=== PATIENT | female | born 1980 | race Two or more races ===

== ENCOUNTER 2017-02-10 03:35 | Emergency (ER) | payer MEDICAID ==
[~2017-02-10] VITALS: Ht 172.7 cm; Wt 61.2 kg
[2017-02-10] MEDS ORDERED: PROZAC10 MG ORAL (03:45)
[2017-02-10] MEDS ORDERED: ATIVAN0.5 MG ORAL (03:45)
[2017-02-10] MEDS ORDERED: Ketorolac 30mg Inj IV ONE (04:15)
[2017-02-10 04:44] LABS: BASOPHILS % (AUTO) 0.8 % (0.0-2.0); EOSINOPHILS % (AUTO) 1.6 % (0.0-3.0); HEMATOCRIT 38.3 % (37.0-47.0); HEMOGLOBIN 12.7 G/DL (12.0-16.0); LYMPHOCYTES % (AUTO) 24.6 % (20.0-45.0); MEAN CORPUSCULAR VOLUME 91 FL (80-99); PLATELET COUNT 342 K/UL (150-450); RED CELL DISTRIBUTION WIDTH 12.2 % (11.6-14.8); WHITE BLOOD COUNT 8.8 K/UL (4.8-10.8)
[2017-02-10 04:54] LABS: ANION GAP 6 mmol/L (5-15); BLOOD UREA NITROGEN 13 mg/dL (7-18); CALCIUM 7.8 MG/DL (8.5-10.1); CARBON DIOXIDE 26 MMOL/L (21-32); CHLORIDE 105 MMOL/L (98-107); CREATININE 0.7 MG/DL (0.55-1.30); POTASSIUM 3.9 MMOL/L (3.5-5.1); SODIUM 137 MMOL/L (136-145)
[2017-02-10 04:59] LABS: ALANINE AMINOTRANSFERASE 22 U/L (12-78); ALBUMIN 3.6 G/DL (3.4-5.0); ALBUMIN/GLOBULIN RATIO 0.9 (1.0-2.7); ALKALINE PHOSPHATASE 75 U/L (46-116); ASPARTATE AMINO TRANSFERASE 14 U/L (15-37); BILIRUBIN,TOTAL 0.1 MG/DL (0.2-1.0)
[2017-02-10 05:04] LABS: APPEARANCE,URINE SLIGHTLY CLOUDY; BILIRUBIN, URINE NEGATIVE (NEGATIVE); COLOR,URINE PALE YELLOW; GLUCOSE, URINE (UA) NEGATIVE (NEGATIVE); KETONES,URINE NEGATIVE (NEGATIVE); LEUKOCYTE ESTERASE ,URINE NEGATIVE (NEGATIVE); NITRITE,URINE NEGATIVE (NEGATIVE); PH,URINE 6 (4.5-8.0); PROTEIN,URINE NEGATIVE (NEGATIVE); UROBILINOGEN,URINE NORMAL MG/DL (0.0-1.0)
[2017-02-10] MEDS ORDERED: Morphine Sulfate 4mg/ml Inj IVP ONE (05:15)
[2017-02-10 05:55] VITALS: BP 113/71
[2017-02-10] MEDS ORDERED: TRAMADOL HCL50 MG ORAL (06:38)
--- NOTE | 2017-02-10 06:38 | Emergency Room Report ---
History of Present Illness General Chief Complaint: Abdominal Pain Source: Patient Present Illness HPI Is a 36-year-old female with history appendectomy. She presents with Lupe abdominal pain sharp and crampy. Also with diarrhea. Onset tonight. No vomiting but does have nausea. Pain is diffuse in nature. Initially the lower quadrant but now to the left upper quadrant in the right upper quadrant area. She was worried about her gallbladder. Allergies: Coded Allergies: No Known Allergies (Unverified , 02/10/17) Patient History Past Medical History: see triage record, old chart reviewed Past Surgical History: appy Pertinent Family History: none Social History: Denies: smoking Last Menstrual Period: 01/25/17 Now: No Immunizations: other Reviewed Nursing Documentation: PMH: Agreed, PSxH: Agreed Nursing Documentation-PMH Past Medical History: No History, Except For History Of Psychiatric Problem: Yes - anxiety Review of Systems Eye: Denies: eye pain, blurred vision ENT: Denies: ear pain, nose congestion, throat swelling Respiratory: Denies: cough, shortness of breath Cardiovascular: Denies: chest pain, palpitations Gastrointestinal: Reports: abdominal pain, diarrhea, Denies: nausea, vomiting Musculoskeletal: Denies: back pain, joint pain Skin: Denies: rash Neurological: Denies: headache, numbness Endocrine: Denies: increased thirst, increased urine Hematologic/Lymphatic: Denies: easy bruising All Other Systems: negative except mentioned in HPI Physical Exam Vital Signs Date Time Temp Pulse Resp B/P (MAP) Pulse Ox O2 Delivery O2 Flow Rate FiO2 02/10/17 03:41 97.7 72 16 112/63 99 Room Air vitals normal Sp02 EP Interpretation: reviewed, normal General Appearance: well appearing, no apparent distress, alert Head: normocephalic, atraumatic Eyes: bilateral eye PERRL, bilateral eye EOMI ENT: hearing grossly normal, normal pharynx Neck: full range of motion, supple, no meningismus Respiratory: chest non-tender, lungs clear, normal breath sounds Cardiovascular #1: regular rate, rhythm, no murmur Gastrointestinal: no mass, no organomegaly, no bruit, non-distended, abnormal bowel sounds - Hyperactive, tenderness - Mild, diffuse Musculoskeletal: back normal, gait/station normal, normal range of motion Psychiatric: mood/affect normal Skin: warm/dry Medical Decision Making Diagnostic Impression: Primary Impression: Abdominal pain Qualified Codes: R10.84 - Generalized abdominal pain Additional Impression: Diarrhea Qualified Codes: R19.7 - Diarrhea, unspecified ER Course Patient present with abdominal pain and diarrhea. Most likely viral in nature. No evidence of obstruction. No evidence of acute abdomen. We'll discharge home. She felt better now. CT/MRI/US Diagnostic Results CT/MRI/US Diagnostic Results : Imaging Test Ordered: CT abdomen and pelvis Impression Read by radiologist. Negative. Last Vital Signs Date Time Temp Pulse Resp B/P (MAP) Pulse Ox O2 Delivery O2 Flow Rate FiO2 02/10/17 05:55 97.7 70 16 113/71 99 Room Air Status: improved Disposition: HOME, SELF-CARE Condition: Stable Scripts Tramadol Hcl* (ULTRAM*) 50 Mg Tablet 50 MG ORAL Q6H Y for For Pain, #15 TAB 0 Refills Prov: MERRILL CLAUDIO M.D. 02/10/17 Referrals: NOT CHOSEN IPA/,REFERRING (PCP) Patient Instructions: Abdominal Pain, Adult Additional Instructions: followup your DrCyrus in 2-3 days and not better. Return if worse. MERRILL CLAUDIO M.D. Feb 10, 2017 06:38
[2017-02-10 06:45] VITALS: BP 113/71
--- NOTE | 2017-02-10 09:36 | Diagnostic Imaging Report ---
Indication: Abdominal pain Technique: CT of the abdomen and pelvis utilizing automated exposure control without intravenous or oral contrast. CT dose: Total DLP 1215.03 mGycm; CTDI vol 24.52 mGy Comparison: None Findings: Please note that evaluation of the abdominal and pelvic viscera is limited without the use of intravenous and oral contrast. Within these limitations, the following observations are made: Dependent atelectasis noted in the lung bases. Heart is partially visualized and appears within normal limits for size. No apparent pericardial effusion. Noncontrast evaluation of the liver, gallbladder, spleen, adrenal glands and pancreas is grossly unremarkable. No urinary tract stones or hydronephrosis bilaterally. The bladder is mildly distended but otherwise unremarkable. There is ill-defined bilateral adnexal enlargement, right greater the left. Ovaries appear to abut each other posteriorly to the uterus was possible intervening fluid. Findings may be related to multiple ovarian cysts or possible hydrosalpinx. Correlation with pelvic ultrasound recommended is currently warranted. No evidence of bowel obstruction. No free intraperitoneal air. The patient is status post appendectomy, most likely post surgical change in the mesenteric fat in the right lower quadrant. No appreciable focal or diffuse abnormal bowel wall thickening however sensitivity is decreased without oral contrast. There is a tiny fat-containing umbilical hernia. Abdominal aorta is normal in caliber. Small mesenteric lymph nodes are noted, possibly reactive in etiology. None meet size criteria for pathologic enlargement. There are multilevel degenerative changes of the thoracolumbar spine. No acute osseous abnormality is seen. Impression: Limited evaluation without intravenous and oral contrast. Within these limitations: * Limited evaluation of the uterus and adnexa. Apparent bilateral adnexal prominence/enlargement may be related to ovarian cysts. Additional etiologies not excluded. Correlation with pelvic ultrasound may be obtained for better evaluation as clinically warranted. * No bowel obstruction. Status post appendectomy. * No renal stones or hydronephrosis. * Small mesenteric lymph nodes are noted, none of which meet imaging size criteria for pathologic enlargement. These may be reactive in etiology. Clinical correlation recommended. Consider follow-up exam as clinically indicated. The CT scanner at [facility] is accredited by the [employer] and the scans are performed using protocols designed to limit radiation exposure to as low as reasonably achievable to attain images of sufficient resolution adequate for diagnostic evaluation.
== END 2017-02-10 06:50 | disposition home or self-care (01) ==
LOC: EDBD 03:35 → EMR 03:55
DX: R10.9 Unspecified abdominal pain (principal); R19.7 Diarrhea, unspecified
CPT/HCPCS: 36415; 74176; 80053; 81003; 81025; 83690; 85025; 96361; 96374; 96375; 99284; J1885; J2270

== ENCOUNTER 2017-06-01 09:10 | Emergency (ER) | payer MEDICAID ==
[~2017-06-01] VITALS: Ht 172.7 cm; Wt 81.6 kg
[~2017-06-01 09:10] MED LIST: ATIVAN0.5 MG ORAL; PROZAC10 MG ORAL; TRAMADOL HCL50 MG ORAL
--- NOTE | 2017-06-01 09:21 | Emergency Room Report ---
History of Present Illness General Chief Complaint: Abdominal Pain Source: Patient Present Illness HPI This patient is brought in by EMS. Around 7 AM this morning she developed severe abdominal pain. She states that then she vomited several times. She did have an episode of diarrhea. He states her pain in her abdomen continues. She denies fever or chills. She denies chest pain or shortness of breath. She denies recent illness. She states she has a history of an appendectomy. She also has a history of some ovarian cysts. She states she is also noted significant weight gain over the past several years. She states that this is despite an unchanged diet. She states she did get seen by her primary care physician and underwent some testing to include a thyroid test. There were no abnormalities identified. Otherwise, the patient has no other complaints. Allergies: Coded Allergies: No Known Allergies (Unverified , 02/10/17) Patient History Past Medical History: see triage record Past Surgical History: appy Social History: Denies: smoking, alcohol use, drug use Last Menstrual Period: 4 days ago Reviewed Nursing Documentation: PMH: Agreed; PSxH: Agreed Review of Systems All Other Systems: negative except mentioned in HPI Physical Exam Vital Signs Date Time Temp Pulse Resp B/P (MAP) Pulse Ox O2 Delivery O2 Flow Rate FiO2 06/01/17 09:12 98.0 60 18 137/89 96 Room Air 98.1 Sp02 EP Interpretation: reviewed, normal General Appearance: no apparent distress, alert, GCS 15, non-toxic Head: normocephalic, atraumatic Eyes: bilateral eye normal inspection, bilateral eye PERRL ENT: hearing grossly normal, normal pharynx, no angioedema, normal voice Neck: full range of motion, supple/symm/no masses Respiratory: chest non-tender, lungs clear, normal breath sounds, no respiratory distress, no retraction, no accessory muscle use, speaking full sentences Cardiovascular #1: regular rate, rhythm, no edema Gastrointestinal: normal bowel sounds, soft, non-distended, no guarding, no rebound, tenderness - Exquisite tenderness to palpation to even light palpation. The tenderness is nonlocalized. Rectal: deferred Musculoskeletal: back normal, gait/station normal, normal range of motion, non- tender Neurologic: alert, oriented x3, responsive, motor strength/tone normal, sensory intact, speech normal Psychiatric: judgement/insight normal, memory normal, mood/affect normal, no suicidal/homicidal ideation Skin: normal color, no rash, warm/dry, well hydrated Medical Decision Making Diagnostic Impression: Primary Impression: Ovarian cyst ER Course This patient presents with abdominal pain. She is found on ultrasound to have a very large right ovary. It appears complicated and could be a large complicated ovarian cyst. However, the patient has significant tenderness to palpation throughout her abdomen. Given the diffuse tenderness, I felt I should also obtain a CT of the abdomen and pelvis for concern of possible ovarian cancer with metastases. I do not suspect peritonitis. The patient is nontoxic, afebrile and without signs or symptoms of infection. Laboratory workup to include CBC, CMP and urinalysis are unremarkable. At this time, the patient is awaiting CT of the abdomen and pelvis. The patient is turned over to Dr. Jones. Laboratory Tests Test 06/01/17 09:20 06/01/17 09:31 06/01/17 11:38 White Blood Count 9.7 K/UL (4.8-10.8) Red Blood Count 4.17 M/UL (4.20-5.40) L Hemoglobin 12.8 G/DL (12.0-16.0) Hematocrit 37.4 % (37.0-47.0) Mean Corpuscular Volume 90 FL (80-99) Mean Corpuscular Hemoglobin 30.6 PG (27.0-31.0) Mean Corpuscular Hemoglobin Concent 34.2 G/DL (32.0-36.0) Red Cell Distribution Width 12.8 % (11.6-14.8) Platelet Count 334 K/UL (150-450) Mean Platelet Volume 7.5 FL (6.5-10.1) Neutrophils (%) (Auto) 79.6 % (45.0-75.0) H Lymphocytes (%) (Auto) 13.4 % (20.0-45.0) L Monocytes (%) (Auto) 4.5 % (1.0-10.0) Eosinophils (%) (Auto) 1.8 % (0.0-3.0) Basophils (%) (Auto) 0.8 % (0.0-2.0) Sodium Level 138 MMOL/L (136-145) Potassium Level 3.9 MMOL/L (3.5-5.1) Chloride Level 104 MMOL/L (98-107) Carbon Dioxide Level 29 MMOL/L (21-32) Anion Gap 5 mmol/L (5-15) Blood Urea Nitrogen 13 mg/dL (7-18) Creatinine 0.8 MG/DL (0.55-1.30) Estimate Glomerular Filtration Rate > 60 mL/min (>60) Glucose Level 117 MG/DL (74-106) H Calcium Level 8.4 MG/DL (8.5-10.1) L Total Bilirubin 0.2 MG/DL (0.2-1.0) Aspartate Amino Transferase (AST) 15 U/L (15-37) Alanine Aminotransferase (ALT) 24 U/L (12-78) Alkaline Phosphatase 70 U/L (46-116) Total Protein 6.8 G/DL (6.4-8.2) Albumin 3.3 G/DL (3.4-5.0) L Globulin 3.5 g/dL Albumin/Globulin Ratio 0.9 (1.0-2.7) L Urine Color Pale yellow Urine Appearance Clear Urine pH 6 (4.5-8.0) Urine Specific [place] 1.010 (1.005-1.035) Urine Protein Negative (NEGATIVE) Urine Glucose (UA) Negative (NEGATIVE) Urine Ketones Negative (NEGATIVE) Urine Occult Blood 4+ (NEGATIVE) H Urine Nitrite Negative (NEGATIVE) Urine Bilirubin Negative (NEGATIVE) Urine Urobilinogen Normal MG/DL (0.0-1.0) Urine Leukocyte Esterase Negative (NEGATIVE) Urine RBC 5-10 /HPF (0 - 2) H Urine WBC 0-2 /HPF (0 - 2) Urine Squamous Epithelial Cells Occasional /LPF Urine Bacteria Occasional /HPF (NONE) Urine HCG, Qualitative Negative (NEGATIVE) CT/MRI/US Diagnostic Results CT/MRI/US Diagnostic Results : Imaging Test Ordered: Pelvic US: Enlarge R. ovary, CT abd/pelvis: Pending. Last Vital Signs Date Time Temp Pulse Resp B/P (MAP) Pulse Ox O2 Delivery O2 Flow Rate FiO2 06/01/17 09:12 98.0 60 18 137/89 96 Room Air 98.1 Condition: Stable MEAGHAN LEE D.O. Jun 01, 2017 09:21
[2017-06-01] MEDS ORDERED: Ketorolac 30mg Inj IV ONE (09:30)
[2017-06-01 10:04] VITALS: BP 112/62
[2017-06-01 10:07] LABS: BASOPHILS % (AUTO) 0.8 % (0.0-2.0); EOSINOPHILS % (AUTO) 1.8 % (0.0-3.0); HEMATOCRIT 37.4 % (37.0-47.0); HEMOGLOBIN 12.8 G/DL (12.0-16.0); LYMPHOCYTES % (AUTO) 13.4 % (20.0-45.0); MEAN CORPUSCULAR VOLUME 90 FL (80-99); MONOCYTES % (AUTO) 4.5 % (1.0-10.0); NEUTROPHILS % (AUTO) 79.6 % (45.0-75.0); PLATELET COUNT 334 K/UL (150-450); RED BLOOD COUNT 4.17 M/UL (4.20-5.40); RED CELL DISTRIBUTION WIDTH 12.8 % (11.6-14.8); WHITE BLOOD COUNT 9.7 K/UL (4.8-10.8)
[2017-06-01 10:17] LABS: ANION GAP 5 mmol/L (5-15); BLOOD UREA NITROGEN 13 mg/dL (7-18); CALCIUM 8.4 MG/DL (8.5-10.1); CARBON DIOXIDE 29 MMOL/L (21-32); CHLORIDE 104 MMOL/L (98-107); CREATININE 0.8 MG/DL (0.55-1.30); POTASSIUM 3.9 MMOL/L (3.5-5.1); SODIUM 138 MMOL/L (136-145)
[2017-06-01 10:21] LABS: ALANINE AMINOTRANSFERASE 24 U/L (12-78); ALBUMIN 3.3 G/DL (3.4-5.0); ALBUMIN/GLOBULIN RATIO 0.9 (1.0-2.7); ALKALINE PHOSPHATASE 70 U/L (46-116); ASPARTATE AMINO TRANSFERASE 15 U/L (15-37); BILIRUBIN,TOTAL 0.2 MG/DL (0.2-1.0)
[2017-06-01 11:47] VITALS: BP 111/62
[2017-06-01 11:56] LABS: APPEARANCE,URINE CLEAR; BILIRUBIN, URINE NEGATIVE (NEGATIVE); COLOR,URINE PALE YELLOW; GLUCOSE, URINE (UA) NEGATIVE (NEGATIVE); KETONES,URINE NEGATIVE (NEGATIVE); LEUKOCYTE ESTERASE ,URINE NEGATIVE (NEGATIVE); NITRITE,URINE NEGATIVE (NEGATIVE); PH,URINE 6 (4.5-8.0); PROTEIN,URINE NEGATIVE (NEGATIVE); UROBILINOGEN,URINE NORMAL MG/DL (0.0-1.0)
[2017-06-01] MEDS ORDERED: LIDODERM700 M1 TOPIC (14:26)
[2017-06-01] MEDS ORDERED: IBUPROFEN600 MG ORAL (14:26)
[2017-06-01 14:38] VITALS: BP 111/62
--- NOTE | 2017-06-02 08:49 | Diagnostic Imaging Report ---
Indication: Pelvic pain Technique: Transabdominal and endovaginal pelvic ultrasound Comparison: CT abdomen and pelvis 02/10/2017 Findings: Examination is technically limited with suboptimal evaluation. Uterus grossly measures 7.6 x 3.6 cm. Endometrial echo complex measures 0.7 cm. Left ovary measures 4.4 x 2.2 cm with follicular changes. There is complex appearance in the right adnexa overall grossly measuring approximately 5.9 x 4.6 cm. There are more focal hypoechoic areas within this grossly measuring up to 3.3 cm. There is a small amount of free fluid in the pelvis. Doppler flow is demonstrated to the bilateral ovaries. Impression: Technically limited examination with suboptimal visualization of pelvic structures. Complex appearance in the right adnexa grossly measuring approximately 5.9 x 4.6 cm with more focal hypoechoic areas within this grossly measuring up to 3.3 cm. Differential considerations would include hemorrhagic cysts, endometriomas or other ovarian or extraovarian pathology. Follicular changes of the left ovary. Doppler flow demonstrated to the bilateral ovaries. Short-term follow-up ultrasound and/or gynecologic evaluation recommended. Endometrial echo complex measures 0.7 cm.
--- NOTE | 2017-06-02 08:55 | Diagnostic Imaging Report ---
Indication: Abdominal pain Technique: CT of the abdomen and pelvis utilizing automated exposure control with intravenous contrast. Venous scanning performed. CT dose: Total DLP 820 mGycm; CTDI vol 15.7 mGy Comparison: 02/10/2017 Findings: Breast implants are partially visualized. There is mild atelectasis in the lung bases. The liver, adrenal glands, spleen and pancreas are unremarkable. No CT dense gallstones are identified. Kidneys are unremarkable. There is suggestion of appendectomy. No appendicitis is identified. There is limited evaluation of the bowel without oral contrast. There is no free intraperitoneal air. There is mild free fluid in the pelvis. There is heterogeneous prominence of the right adnexa with complex hypodense area grossly measuring 4.4 x 5.3 cm. Probable follicular changes of the left ovary are also seen. Tampon is seen in the vagina. Bladder is grossly unremarkable. Degenerative changes of the spine are present. Impression: Complex hypodense appearance of the right adnexa grossly measuring 5.3 x 4.4 cm. Although findings could represent underlying hemorrhagic/functional cysts, possibility of endometriomas or other ovarian pathology not excluded. Short-term follow-up/gynecologic evaluation recommended. Small amount of free fluid in the pelvis. Apparent appendectomy. Tampon. Other findings as above. The CT scanner at [facility] is accredited by the [employer] and the scans are performed using protocols designed to limit radiation exposure to as low as reasonably achievable to attain images of sufficient resolution adequate for diagnostic evaluation.
== END 2017-06-01 14:39 | disposition home or self-care (01) ==
LOC: EDBD 09:10 → EMR 09:22
DX: N83.201 Unspecified ovarian cyst, right side (principal)
CPT/HCPCS: 36415; 74177; 76856; 80053; 81003; 81025; 85025; 96361; 96374; 99284; J1885; Q9967

== ENCOUNTER 2017-07-04 12:01 | Emergency (ER) | payer MEDICAID ==
[~2017-07-04] VITALS: Ht 172.7 cm; Wt 77.1 kg
[~2017-07-04 12:01] MED LIST changes: +IBUPROFEN600 MG ORAL; +LIDODERM700 M1 TOPIC
[2017-07-04] MEDS ORDERED: PROZAC20 MG ORAL (12:03)
[2017-07-04 12:08] VITALS: BP 132/69
[2017-07-04] MEDS ORDERED: Morphine Sulfate 4mg/ml Inj IVP ONE (12:30)
[2017-07-04] MEDS ORDERED: Ketorolac 30mg Inj IV ONE (12:30)
[2017-07-04 12:34] LABS: HEMOGLOBIN 14.1 G/DL (12.0-16.0); MEAN CORPUSCULAR VOLUME 89 FL (80-99); PLATELET COUNT 432 K/UL (150-450); RED BLOOD COUNT 4.84 M/UL (4.20-5.40); RED CELL DISTRIBUTION WIDTH 12.6 % (11.6-14.8); WHITE BLOOD COUNT 14.7 K/UL (4.8-10.8)
[2017-07-04 12:45] LABS: ANION GAP 6 mmol/L (5-15); BLOOD UREA NITROGEN 11 mg/dL (7-18); CALCIUM 9.3 MG/DL (8.5-10.1); CARBON DIOXIDE 28 MMOL/L (21-32); CHLORIDE 105 MMOL/L (98-107); CREATININE 0.9 MG/DL (0.55-1.30); POTASSIUM 3.9 MMOL/L (3.5-5.1); SODIUM 139 MMOL/L (136-145)
[2017-07-04 12:49] LABS: ALANINE AMINOTRANSFERASE 28 U/L (12-78); ALBUMIN 3.9 G/DL (3.4-5.0); ALBUMIN/GLOBULIN RATIO 0.9 (1.0-2.7); ALKALINE PHOSPHATASE 82 U/L (46-116); ASPARTATE AMINO TRANSFERASE 14 U/L (15-37); BILIRUBIN,TOTAL < 0.1 MG/DL (0.2-1.0)
--- NOTE | 2017-07-04 13:00 | Emergency Room Report ---
History of Present Illness General Chief Complaint: Abdominal Pain Source: Patient Present Illness HPI Patient present with complaints of diffuse abdominal pain Initially reports of the pain is in the lower bladder area/uterus And the pain has also gone diffusely throughout the abdomen Cramping sensation 10 out of 10 Denies any vomiting or diarrhea Denies any chest pain or short of breath Denies any pleurisy Patient had some similar pain recently which was diagnosed with ruptured ovarian cyst Allergies: Coded Allergies: No Known Allergies (Unverified , 02/10/17) Patient History Past Medical History: see triage record Pertinent Family History: none Last Menstrual Period: 05/26/17 Reviewed Nursing Documentation: PMH: Agreed; PSxH: Agreed Review of Systems All Other Systems: negative except mentioned in HPI Physical Exam Vital Signs Date Time Temp Pulse Resp B/P (MAP) Pulse Ox O2 Delivery O2 Flow Rate FiO2 07/04/17 11:58 98.2 88 22 143/87 99 Room Air 98.2 Sp02 EP Interpretation: reviewed, normal General Appearance: mild distress - in acute pain Head: normocephalic, atraumatic Eyes: bilateral eye PERRL, bilateral eye EOMI ENT: hearing grossly normal, normal pharynx, TMs + canals normal, uvula midline Neck: full range of motion, supple, no meningismus, no bony tend Respiratory: lungs clear, normal breath sounds, no rhonchi, no respiratory distress, no retraction, no accessory muscle use Cardiovascular #1: normal peripheral pulses, regular rate, rhythm, no edema, no gallop, no JVD, no murmur Gastrointestinal: normal bowel sounds, soft, no mass, no organomegaly, non- distended, no guarding, no hernia, no pulsatile mass, no rebound, tenderness - Soft abdomen clinically however patient is tender diffusely on any palpation no obvious peritoneal finding I cannot localize the pain specifically however there does appear to be increased discomfort in the suprapubic area Genitourinary: no CVA tenderness Musculoskeletal: normal inspection Neurologic: oriented x3, responsive, lead software test engineer III-XII nml as tested, motor strength/ tone normal, sensory intact Psychiatric: mood/affect normal Skin: normal color, no rash, warm/dry, palpation normal Lymphatic: normal inspection, no adenopathy Medical Decision Making Diagnostic Impression: Primary Impression: Abdominal pain Additional Impressions: Endometrioma Cyst, ovary, follicular ER Course With the patient's history and examination, multiple differentials considered, including but not limited to , ectopic , ovarian torsion, gastritis, cholecystitis, pancreatitis, appendicitis Patient's blood work reveals mildly elevated white blood cell count Patient has had recent CAT scan imaging and therefore this was deferred, ultrasound was performed, revealing similar mass in the right adnexal region there is evidence of fluid, radiology reports likely from ruptured cyst. However, patient is notified of the importance of close follow up as she was last time as other differentials such as neoplasm(cancer) are still possible Some other differentials and consideration include peritoneal irritation from possible ruptured cyst, worsening endometriomas Patient is placed on oral antibiotics At this time does not appear septic or toxic abdomen exam has greatly improved I did offer patient admission with gynecology consultation during hospitalization, however patient reports significant improvement and would like to see her own specialist Labs Test 07/04/17 12:20 07/04/17 13:10 White Blood Count 14.7 K/UL (4.8-10.8) Red Blood Count 4.84 M/UL (4.20-5.40) Hemoglobin 14.1 G/DL (12.0-16.0) Hematocrit 43.0 % (37.0-47.0) Mean Corpuscular Volume 89 FL (80-99) Mean Corpuscular Hemoglobin 29.1 PG (27.0-31.0) Mean Corpuscular Hemoglobin Concent 32.7 G/DL (32.0-36.0) Red Cell Distribution Width 12.6 % (11.6-14.8) Platelet Count 432 K/UL (150-450) Mean Platelet Volume 7.0 FL (6.5-10.1) Neutrophils (%) (Auto) % (45.0-75.0) Lymphocytes (%) (Auto) % (20.0-45.0) Monocytes (%) (Auto) % (1.0-10.0) Eosinophils (%) (Auto) % (0.0-3.0) Basophils (%) (Auto) % (0.0-2.0) Differential Total Cells Counted 100 Neutrophils % (Manual) 79 % (45-75) Lymphocytes % (Manual) 12 % (20-45) Monocytes % (Manual) 6 % (1-10) Eosinophils % (Manual) 2 % (0-3) Basophils % (Manual) 0 % (0-2) Band Neutrophils 1 % (0-8) Platelet Estimate Adequate Platelet Morphology Normal Red Blood Cell Morphology Normal Sodium Level 139 MMOL/L (136-145) Potassium Level 3.9 MMOL/L (3.5-5.1) Chloride Level 105 MMOL/L (98-107) Carbon Dioxide Level 28 MMOL/L (21-32) Anion Gap 6 mmol/L (5-15) Blood Urea Nitrogen 11 mg/dL (7-18) Creatinine 0.9 MG/DL (0.55-1.30) Estimat Glomerular Filtration Rate > 60 mL/min (>60) Glucose Level 141 MG/DL (74-106) Calcium Level 9.3 MG/DL (8.5-10.1) Total Bilirubin < 0.1 MG/DL (0.2-1.0) Aspartate Amino Transf (AST/SGOT) 14 U/L (15-37) Alanine Aminotransferase (ALT/SGPT) 28 U/L (12-78) Alkaline Phosphatase 82 U/L (46-116) Total Protein 8.1 G/DL (6.4-8.2) Albumin 3.9 G/DL (3.4-5.0) Globulin 4.2 g/dL Albumin/Globulin Ratio 0.9 (1.0-2.7) Lipase 80 U/L (73-393) Urine Color Pale yellow Urine Appearance Clear Urine pH 6 (4.5-8.0) Urine Specific [place] 1.015 (1.005-1.035) Urine Protein Negative (NEGATIVE) Urine Glucose (UA) Negative (NEGATIVE) Urine Ketones Negative (NEGATIVE) Urine Occult Blood 2+ (NEGATIVE) Urine Nitrite Negative (NEGATIVE) Urine Bilirubin Negative (NEGATIVE) Urine Urobilinogen Normal MG/DL (0.0-1.0) Urine Leukocyte Esterase Negative (NEGATIVE) Urine RBC 2-4 /HPF (0 - 2) Urine WBC 0-2 /HPF (0 - 2) Urine Squamous Epithelial Cells Few /LPF (NONE/OCC) Urine Bacteria Occasional /HPF (NONE) Urine HCG, Qualitative Negative (NEGATIVE) CT/MRI/US Diagnostic Results CT/MRI/US Diagnostic Results : Impression pelvic ultrasound:IMPRESSION: Moderate hemoperitoneum within the pelvis. Findings probably on the basis of rupture of a hemorrhagic ovarian cyst. Patient is not so ectopic is not considered. 5 to 6 cm complex right ovarian mass. Differential includes hemorrhagic cysts versus ovarian neoplasm. Recommend six-week interval sonographic follow-up and follow- up with [facility]. Small fundal uterine fibroid. Last Vital Signs Date Time Temp Pulse Resp B/P (MAP) Pulse Ox O2 Delivery O2 Flow Rate FiO2 07/04/17 12:30 98.2 07/04/17 12:08 67 22 132/69 99 Room Air Status: improved Disposition: HOME, SELF-CARE Condition: Improved Scripts Metronidazole* (FLAGYL*) 500 Mg Tablet 500 MG ORAL THREE TIMES A DAY, #21 TAB Prov: Sandeep Sifuentes DO 07/04/17 Acetaminophen With Codeine (T#3) (TYLENOL #3 TAB*) Y Tab 1 TAB ORAL Q8H PRN for For Pain, #10 TAB Prov: Sandeep Sifuentes DO 07/04/17 Ibuprofen* (MOTRIN*) 600 Mg Tablet 600 MG ORAL Q8H PRN for For Pain, #30 TAB 0 Refills Prov: Sandeep Sifuentes DO 07/04/17 Referrals: NON PHYSICIAN (PCP) Additional Instructions: Patient is provided with the discharge instructions notified to follow up with primary doctor in the next 2-3 days otherwise return to the er with any worsening symptoms. Please note that this report is being documented using [employer] technology. This can lead to erroneous entry secondary to incorrect interpretation by the dictating instrument. Sandeep Sifuentes DO July 04, 2017 13:00
[2017-07-04 13:50] LABS: BILIRUBIN, URINE NEGATIVE (NEGATIVE); COLOR,URINE PALE YELLOW; GLUCOSE, URINE (UA) NEGATIVE (NEGATIVE); KETONES,URINE NEGATIVE (NEGATIVE); LEUKOCYTE ESTERASE ,URINE NEGATIVE (NEGATIVE); NITRITE,URINE NEGATIVE (NEGATIVE); PH,URINE 6 (4.5-8.0); PROTEIN,URINE NEGATIVE (NEGATIVE); UROBILINOGEN,URINE NORMAL MG/DL (0.0-1.0)
[2017-07-04 13:51] LABS: APPEARANCE,URINE CLEAR
[2017-07-04] MEDS ORDERED: IBUPROFEN600 MG ORAL (14:15)
[2017-07-04] MEDS ORDERED: METRONIDAZOLE500 MG ORAL (14:15)
[2017-07-04] MEDS ORDERED: ACETAMINOPHEN-1 EAC1 ORAL (14:15)
[2017-07-04 14:30] VITALS: BP 125/78
[2017-07-04] MEDS ORDERED: cefTRIAXone 1 GM in NS 55 ML IVPB ONE (14:45)
--- NOTE | 2017-07-04 14:58 | Diagnostic Imaging Report ---
Indication:Lower abdominal and pelvic pain Technique: Grayscale and duplex Doppler imaging of the pelvis performed utilizing a transabdominal scan and endovaginal scan. Comparison: None Findings: We have clinical confirmation of a negative test. There is free fluid within the cul-de-sac with the echoes indicative of pneumoperitoneum. Findings are probably on the basis of a ruptured hemorrhagic cyst. In the right adnexa there is a partially cystic complex lesion measuring 5.5 x 5 cm. Follow-up is recommended at another phase of the menstrual cycle in 6 weeks. These could be physiologic hemorrhagic cysts. Differential includes cystic neoplasm. There is dopplerable blood flow within the solid portion of the right ovary. The uterus demonstrates a normal endometrium measuring 7 mm with uniform echogenicity. There is a small fibroid that is probably intramural in the fundal region measuring about 1 x 1.2 cm. There is a simple cyst in the left ovary likely physiologic. Uterus measures 7.6 x 4.2 x 3.6 cm. Right ovary measures 5.5 x 5.7 x 5 cm. Left ovary 4.2 x 3.5 x 2 cm. IMPRESSION: Moderate hemoperitoneum within the pelvis. Findings probably on the basis of rupture of a hemorrhagic ovarian cyst. Patient is not so ectopic is not considered. 5 to 6 cm complex right ovarian mass. Differential includes hemorrhagic cysts versus ovarian neoplasm. Recommend six-week interval sonographic follow-up and follow-up with DRYING MACHINE BACK TENDER. Small fundal uterine fibroid.
[2017-07-04 16:40] VITALS: BP 125/78
== END 2017-07-04 16:40 | disposition home or self-care (01) ==
LOC: EDBD 12:01 → EMR 12:40 → CANBEDREQ 14:46 → EMR 16:40
DX: R10.30 Lower abdominal pain, unspecified (principal); N80.9 Endometriosis, unspecified; N83.201 Unspecified ovarian cyst, right side; D25.9 Leiomyoma of uterus, unspecified
CPT/HCPCS: 36415; 76830; 76856; 80053; 81003; 81025; 83690; 85007; 85025; 96374; 96375; 99284; J0696; J1885; J2270; J2405

== ENCOUNTER 2017-08-16 05:49 | Emergency (ER) | payer MEDICAID ==
[~2017-08-16] VITALS: Ht 172.7 cm; Wt 72.6 kg
[~2017-08-16 05:49] MED LIST changes: +ACETAMINOPHEN-1 EAC1 ORAL; +METRONIDAZOLE500 MG ORAL; +PROZAC20 MG ORAL
--- NOTE | 2017-08-16 06:05 | Emergency Room Report ---
History of Present Illness General Chief Complaint: Abdominal Pain Source: Patient, Medical Record, EMS Present Illness HPI Is a 36 year female with no past medical history. She presents with chief complaint of abdominal pain. Onset was around 4:40 AM. Woke up with it. Pain is sharp localized the lower quadrant. 10 out of 10. No radiation. Has several episode vomiting. No diarrhea. She was here in June in had a rupture ovarian cyst. Also with an ovarian mass that she has not followed up with. She has some vaginal spotting. Does not know if she is . No fever chills but no other complaint. No urinary complaint. Allergies: Coded Allergies: No Known Allergies (Unverified , 02/10/17) Patient History Past Medical History: see triage record, old chart reviewed Past Surgical History: other Pertinent Family History: none Social History: Denies: smoking Last Menstrual Period: 07/2017 Now: No Immunizations: other Reviewed Nursing Documentation: PMH: Agreed; PSxH: Agreed Review of Systems Eye: Denies: eye pain, blurred vision ENT: Denies: ear pain, nose congestion, throat swelling Respiratory: Denies: cough, shortness of breath Cardiovascular: Denies: chest pain, palpitations Gastrointestinal: Reports: abdominal pain, nausea, vomiting; Denies: diarrhea Musculoskeletal: Denies: back pain, joint pain Skin: Denies: rash Neurological: Denies: headache, numbness Endocrine: Denies: increased thirst, increased urine Hematologic/Lymphatic: Denies: easy bruising All Other Systems: negative except mentioned in HPI Physical Exam Vital Signs Date Time Temp Pulse Resp B/P (MAP) Pulse Ox O2 Delivery O2 Flow Rate FiO2 08/16/17 05:45 97.9 93 16 151/88 99 Room Air 97.9 vitals with high blood pressure Sp02 EP Interpretation: reviewed, normal General Appearance: well appearing, no apparent distress, alert Head: normocephalic, atraumatic Eyes: bilateral eye PERRL, bilateral eye EOMI ENT: hearing grossly normal, normal pharynx Neck: full range of motion, supple, no meningismus Respiratory: chest non-tender, lungs clear, normal breath sounds Cardiovascular #1: regular rate, rhythm, no murmur Gastrointestinal: normal bowel sounds, no mass, no organomegaly, no bruit, non- distended, tenderness - diffuse lower quadrant abdominal pain Musculoskeletal: back normal, gait/station normal, normal range of motion Psychiatric: anxious Skin: warm/dry Medical Decision Making Diagnostic Impression: Primary Impression: Abdominal pain Qualified Codes: R10.30 - Lower abdominal pain, unspecified ER Course Patient with lower abdominal pain. Differential include rupture ovarian cysts, torsion, ectopic, appendicitis to name a few. We'll check urine for . Labs and CT scan ordered. Pain medication ordered. I will sign this patient out to Dr. Meeks for final disposition. Last Vital Signs Date Time Temp Pulse Resp B/P (MAP) Pulse Ox O2 Delivery O2 Flow Rate FiO2 08/16/17 05:45 97.9 93 16 151/88 99 Room Air 97.9 MERRILL CLAUDIO M.D. Aug 16, 2017 06:05
[2017-08-16] MEDS ORDERED: Morphine Sulfate 4mg/ml Inj IVP ONE (06:15)
[2017-08-16] MEDS ORDERED: Isovue-300 100ml vial INJ PRN (06:45)
[2017-08-16 06:46] LABS: BASOPHILS % (AUTO) 0.8 % (0.0-2.0); EOSINOPHILS % (AUTO) 1.7 % (0.0-3.0); HEMATOCRIT 42.8 % (37.0-47.0); HEMOGLOBIN 14.1 G/DL (12.0-16.0); MEAN CORPUSCULAR VOLUME 89 FL (80-99); MONOCYTES % (AUTO) 6.7 % (1.0-10.0); NEUTROPHILS % (AUTO) 67.8 % (45.0-75.0); PLATELET COUNT 359 K/UL (150-450); RED BLOOD COUNT 4.82 M/UL (4.20-5.40); RED CELL DISTRIBUTION WIDTH 12.6 % (11.6-14.8); WHITE BLOOD COUNT 10.5 K/UL (4.8-10.8)
[2017-08-16 06:53] LABS: ANION GAP 11 mmol/L (5-15); BLOOD UREA NITROGEN 10 mg/dL (7-18); CALCIUM 8.4 MG/DL (8.5-10.1); CARBON DIOXIDE 24 MMOL/L (21-32); CHLORIDE 105 MMOL/L (98-107); CREATININE 0.8 MG/DL (0.55-1.30); POTASSIUM 3.1 MMOL/L (3.5-5.1); SODIUM 140 MMOL/L (136-145)
[2017-08-16 06:58] LABS: ALANINE AMINOTRANSFERASE 26 U/L (12-78); ALBUMIN 3.7 G/DL (3.4-5.0); ALKALINE PHOSPHATASE 63 U/L (46-116); ASPARTATE AMINO TRANSFERASE 12 U/L (15-37); BILIRUBIN,TOTAL 0.1 MG/DL (0.2-1.0)
[2017-08-16 07:00] VITALS: BP 99/60
[2017-08-16 07:12] LABS: BILIRUBIN, URINE NEGATIVE (NEGATIVE); GLUCOSE, URINE (UA) NEGATIVE (NEGATIVE); KETONES,URINE NEGATIVE (NEGATIVE); LEUKOCYTE ESTERASE ,URINE 1+ (NEGATIVE); NITRITE,URINE NEGATIVE (NEGATIVE); PH,URINE 5 (4.5-8.0); PROTEIN,URINE NEGATIVE (NEGATIVE); UROBILINOGEN,URINE NORMAL MG/DL (0.0-1.0)
[2017-08-16 07:13] LABS: APPEARANCE,URINE SLIGHTLY CLOUDY; COLOR,URINE YELLOW
[2017-08-16 09:10] VITALS: BP 108/65
--- NOTE | 2017-08-16 09:19 | Diagnostic Imaging Report ---
Indication: Abdominal pain Technique: Continuous helical transaxial imaging of the abdomen and pelvis was obtained from the lung bases to the pubic symphysis during intravenous contrast administration. Coronal 2-D reformats were also obtained. Study obtained in a Siemens sensation [address] Automatic Exposure Control was utilized. Total Dose length Product (DLP): 877.[address] Dose Index Volume (CTDIvol): 17.25 mGy Comparison: 06/01/2017 CT abdomen pelvis, pelvic ultrasound 07/04/2017 Findings: The lung bases are clear. No definite abnormalities of the liver, spleen, gallbladder, pancreas, kidneys, adrenal glands are identified. Surgical suture noted in the area of the appendix which is not seen consider there is a prominent the low density right ovarian mass probably cystic measuring between 4.5 and 5 cm, enlarged in the interval although the lesion was seen previously. Clinical evaluation by STRAIGHTENING MACHINE OPERATOR is highly recommended unless the patient and his RAD being followed by STRAIGHTENING MACHINE OPERATOR in the base of the last study from 07/04/2017 ultrasound which showed similar findings. Uterus noted. Urinary bladder is mostly nondistended. No free fluid, free air, inflammatory changes identified. There is no hydronephrosis. IMPRESSION: 5 cm hypodense mass presumably arising from the right ovary again demonstrated. Comparison with the most recent examination which was an ultrasound from 07/04/2017 shows little to no change keeping in mind these are different modalities. The prior study also showed hemoperitoneum, which there is no evidence of currently. Follow-up and clinical evaluation by STRAIGHTENING MACHINE OPERATOR is highly recommended. Possibility of ovarian tumor is not excluded. Status post appendectomy. The CT scanner at [facility] is accredited by the [employer] and the scans are performed using dose optimization techniques as appropriate to a performed exam including Automatic Exposure control.
[2017-08-16] MEDS ORDERED: TRAMADOL HCL50 MG ORAL (09:45)
[2017-08-16] MEDS ORDERED: IBUPROFEN600 MG ORAL (09:45)
[2017-08-16 09:55] VITALS: BP 108/65
--- NOTE | 2017-08-16 10:00 | Emergency Room Report ---
History of Present Illness General Chief Complaint: Abdominal Pain Source: Patient, Medical Record, EMS Present Illness Allergies: Coded Allergies: No Known Allergies (Unverified , 02/10/17) Patient History Last Menstrual Period: 07/2017 Now: No Physical Exam Vital Signs Date Time Temp Pulse Resp B/P (MAP) Pulse Ox O2 Delivery O2 Flow Rate FiO2 08/16/17 05:45 97.9 93 16 151/88 99 Room Air 97.9 Medical Decision Making Diagnostic Impression: Primary Impression: Ovarian cystic mass Qualified Codes: N83.201 - Unspecified ovarian cyst, right side Additional Impression: Abdominal pain Qualified Codes: R10.30 - Lower abdominal pain, unspecified ER Course Hospital Course 36-year-old F presents to ED with lower abd pain Clinical course Patient initially seen and evaluated by Dr. Grayson. Please see his note for full history and physical Labs - no leukocytosis, electrolytes ok, LFTs normal, UA unremarkable CT scan shows ? mass vs ovarian cyst on right. no free fluid I discussed findings with the patient. Patient had been here previously for similar pain. Patient had pelvic ultrasound at bedside CT. It was documented that differential for neoplasm had been discussed with the patient. Patient states she had not yet seen OBGYN because of insurance i will provide her with OBGYN referrals; encourage the importance of this followup I feel this is a highly complex case requiring extensive working including EKG/ Rhythm strip, Xray/CT/US, Blood/urine lab work, repeat exams while in ED, and administration of strong opiates/narcotics for pain control, admission to hospital or close patient follow up. Diagnosis - ovarian cystic mass, abdominal pain Stable and discharged to home with Rx Motrin, Tramadol. Followup with OBGYN/ PMD. Return to ED if symptoms recur or worsen Labs Test 08/16/17 06:10 08/16/17 06:50 White Blood Count 10.5 K/UL (4.8-10.8) Red Blood Count 4.82 M/UL (4.20-5.40) Hemoglobin 14.1 G/DL (12.0-16.0) Hematocrit 42.8 % (37.0-47.0) Mean Corpuscular Volume 89 FL (80-99) Mean Corpuscular Hemoglobin 29.3 PG (27.0-31.0) Mean Corpuscular Hemoglobin Concent 33.0 G/DL (32.0-36.0) Red Cell Distribution Width 12.6 % (11.6-14.8) Platelet Count 359 K/UL (150-450) Mean Platelet Volume 7.2 FL (6.5-10.1) Neutrophils (%) (Auto) 67.8 % (45.0-75.0) Lymphocytes (%) (Auto) 23.0 % (20.0-45.0) Monocytes (%) (Auto) 6.7 % (1.0-10.0) Eosinophils (%) (Auto) 1.7 % (0.0-3.0) Basophils (%) (Auto) 0.8 % (0.0-2.0) Sodium Level 140 MMOL/L (136-145) Potassium Level 3.1 MMOL/L (3.5-5.1) Chloride Level 105 MMOL/L (98-107) Carbon Dioxide Level 24 MMOL/L (21-32) Anion Gap 11 mmol/L (5-15) Blood Urea Nitrogen 10 mg/dL (7-18) Creatinine 0.8 MG/DL (0.55-1.30) Estimat Glomerular Filtration Rate > 60 mL/min (>60) Glucose Level 123 MG/DL (74-106) Calcium Level 8.4 MG/DL (8.5-10.1) Total Bilirubin 0.1 MG/DL (0.2-1.0) Aspartate Amino Transf (AST/SGOT) 12 U/L (15-37) Alanine Aminotransferase (ALT/SGPT) 26 U/L (12-78) Alkaline Phosphatase 63 U/L (46-116) Total Protein 7.4 G/DL (6.4-8.2) Albumin 3.7 G/DL (3.4-5.0) Globulin 3.7 g/dL Albumin/Globulin Ratio 1.0 (1.0-2.7) Lipase 100 U/L (73-393) Human Chorionic Gonadotropin, Qual Negative Urine Color Yellow Urine Appearance Slightly cloudy Urine pH 5 (4.5-8.0) Urine Specific [place] 1.025 (1.005-1.035) Urine Protein Negative (NEGATIVE) Urine Glucose (UA) Negative (NEGATIVE) Urine Ketones Negative (NEGATIVE) Urine Occult Blood 5+ (NEGATIVE) Urine Nitrite Negative (NEGATIVE) Urine Bilirubin Negative (NEGATIVE) Urine Urobilinogen Normal MG/DL (0.0-1.0) Urine Leukocyte Esterase 1+ (NEGATIVE) Urine RBC 20-30 /HPF (0 - 2) Urine WBC 2-4 /HPF (0 - 2) Urine Squamous Epithelial Cells Many /LPF (NONE/OCC) Urine Bacteria Few /HPF (NONE) Urine HCG, Qualitative Negative (NEGATIVE) CT/MRI/US Diagnostic Results CT/MRI/US Diagnostic Results : Imaging Test Ordered: CT A/P Impression 5 cm hypodense mass presumably arising from the right ovary again demonstrated. Comparison with the most recent examination which was an ultrasound from 2017 shows little to no change keeping in mind these are different modalities. The prior study also showed hemoperitoneum, which there is no evidence of currently. Follow-up and clinical evaluation by [facility] is highly recommended. Possibility of ovarian tumor is not excluded. Last Vital Signs Date Time Temp Pulse Resp B/P (MAP) Pulse Ox O2 Delivery O2 Flow Rate FiO2 08/16/17 09:10 97.1 68 12 108/65 100 Room Air 97.1 Status: improved Disposition: HOME, SELF-CARE Condition: Stable Scripts Tramadol Hcl* (ULTRAM*) 50 Mg Tablet 50 MG ORAL Q6H PRN for For Pain, #30 TAB 0 Refills Prov: James Meeks MD 08/16/17 Ibuprofen* (MOTRIN*) 600 Mg Tablet 600 MG ORAL Q8H PRN for For Pain, #30 TAB 0 Refills Prov: James Meeks MD 08/16/17 Referrals: Santa Gustafson M.D., [facility] Patient Instructions: Pelvic Mass James Meeks MD Aug 16, 2017 10:00
== END 2017-08-16 09:55 | disposition home or self-care (01) ==
LOC: EDBD 05:49 → EMR 06:19
DX: N83.291 Other ovarian cyst, right side (principal); R10.30 Lower abdominal pain, unspecified; N83.201 Unspecified ovarian cyst, right side
CPT/HCPCS: 36415; 74177; 80053; 81003; 81025; 83690; 84703; 85025; 96361; 96374; 96375; 99284; J2270; J2405; Q9967; 96360

== ENCOUNTER 2018-10-12 22:59 | Emergency (ER) | payer MEDICAID, OTHER ==
[~2018-10-12] VITALS: Ht 172.7 cm; Wt 74.8 kg
--- NOTE | 2018-10-12 23:10 | NUR ---
ED Nurse Note: patient ambulated to ed with left elbow stiffness and pain x 10 days. denies trauma or fall. Pt is AO x 4times, VSS, on room air no distress. ERMD seen Pt at bedside.
[2018-10-12] MEDS ORDERED: Ketorolac 60mg Inj IM ONE (23:45)
[2018-10-12] MEDS ORDERED: oxyCODONE HCL/Acetaminophen 5/325mg ORAL ONE (23:45)
--- NOTE | 2018-10-13 00:15 | NUR ---
ED Nurse Note: X ray at bedside.
[2018-10-13 00:31] VITALS: BP 123/73
--- NOTE | 2018-10-13 01:54 | Emergency Room Report ---
History of Present Illness General Chief Complaint: Upper Extremity Injury Source: Patient Present Illness HPI Patient presents with 10 days of left elbow pain. She is left-handed. She plays tennis. It started hurting her while she was playing tennis. She denies direct trauma. The pain is rated 8/10 and constant but worse when she extends her forearm. She is been taking ibuprofen 800. The last dose was yesterday. Is been helping minimally. She denies any numbness. No previous evaluation. 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 She denies fevers or chills. There is no rash in the area. 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 Last Menstrual Period: 10/10/18 Now: No Reviewed Nursing Documentation: PMH: Agreed; PSxH: Agreed Nursing Documentation-PMH Past Medical History: No History, Except For Review of Systems Constitutional: Reports: see HPI Musculoskeletal: Reports: see HPI Skin: Reports: see HPI Neurological: Reports: see HPI Hematologic/Lymphatic: Denies: easy bruising Physical Exam Vital Signs Date Time Temp Pulse Resp B/P (MAP) Pulse Ox O2 Delivery O2 Flow Rate FiO2 10/12/18 23:04 98.2 75 14 113/63 (80) 96 Room Air Sp02 EP Interpretation: reviewed, normal General Appearance: well appearing, no apparent distress, GCS 15 Head: normocephalic Eyes: bilateral eye normal inspection, bilateral eye PERRL ENT: moist mucus membranes Neck: full range of motion Respiratory: speaking full sentences Cardiovascular #1: regular rate, rhythm Cardiovascular #2: 2+ radial (R) - Distal capillary refill normal Gastrointestinal: normal inspection Musculoskeletal: digits/nails normal, gait/station normal, swelling - Minimal left lateral elbow area, other - No wrist or shoulder tenderness, tenderness - Left lateral elbow area Neurologic: alert, oriented x3, distal neuro normal Psychiatric: mood/affect normal Skin: no rash Medical Decision Making Diagnostic Impression: Primary Impression: Tendinitis of left elbow ER Course Patient presents with left elbow tenderness. Differential includes tendinitis, avulsion fracture amongst others. X-rays are indicated. Also the patient will be given a dose of ibuprofen. X-ray without fracture. Cory wrap applied by tech and reapplied by me. Tension excellent. Some improvement in symptoms. Distal neurovascular exam normal. A sling was also applied. Discussed treatment plan with patient and mechanism of injury. Also discussed that physical therapy will help. Patient stable for outpatient observation and treatment. Other X-Ray Diagnostic Results Other X-Ray Diagnostic Results : X-Ray ordered: left elbow # of Views/Limited Vs Complete: 3 View Indication: Pain EP Interpretation: Yes Interpretation: no dislocation, no soft tissue swelling Impression: No acute disease Electronically Signed by: Electronically signed by Larry Medel MD Last Vital Signs Date Time Temp Pulse Resp B/P (MAP) Pulse Ox O2 Delivery O2 Flow Rate FiO2 10/13/18 02:27 97.8 72 18 118/78 100 Room Air Status: improved Disposition: HOME, SELF-CARE Condition: Improved Scripts Hydrocodone Bit/Acetaminophen 5-325* (NORCO 5-325*) 1 Each Tablet 1 TAB ORAL Q6H PRN for For Pain, #6 TAB 0 Refills Prov: Larry Medel MD 10/13/18 Ibuprofen* (MOTRIN*) 600 Mg Tablet 600 MG ORAL Q6H PRN for For Pain, #20 TAB 0 Refills Prov: Larry Medel MD 10/13/18 Referrals: [facility],REFERRING (PCP) Larry Medel MD Oct 13, 2018 01:54
[2018-10-13] MEDS ORDERED: NORCO 5-325 TA1 EACH ORAL (02:16)
[2018-10-13] MEDS ORDERED: IBUPROFEN600 MG ORAL (02:16)
[2018-10-13 02:23] VITALS: BP 116/78
--- NOTE | 2018-10-13 02:26 | NUR ---
ER DISCHARGE NOTE: Patient is cleared to be discharged per ERMD, pt is aox4, on room air, with stable vital signs. pt was given dc and prescription instructions, pt was able to verbalize understanding, pt id band removed without complications. pt is able to ambulate with steady gait with . pt took all belongings.
[2018-10-13 02:27] VITALS: BP 118/78
== END 2018-10-13 02:28 | disposition home or self-care (01) ==
LOC: EMR 23:28
DX: M77.12 Lateral epicondylitis, left elbow (principal); F17.200 Nicotine dependence, unspecified, uncomplicated
CPT/HCPCS: 96372; 99283

== ENCOUNTER 2018-11-01 20:49 | Emergency (ER) | payer OTHER ==
[~2018-11-01] VITALS: Ht 172.7 cm; Wt 74.4 kg
[~2018-11-01 20:49] MED LIST changes: +NORCO 5-325 TA1 EACH ORAL
[2018-11-01 20:52] VITALS: BP 116/70
--- NOTE | 2018-11-01 20:52 | NUR ---
ED Nurse Note: PT AMBULATED TO ED STATING "I WANT TO FIND OUT IF IM OR NOT". PT LMP WAS 10/03/18. AT BEDSIDE. PT WAS ABLE TO PROVIDE URINE SPECIMEN.
--- NOTE | 2018-11-01 21:22 | Emergency Room Report ---
History of Present Illness General Chief Complaint: General Complaint Source: Patient Present Illness HPI This is a 38-year-old female who presents with chief complaint of check. She said that her menstruation is irregular based on the level of stress that she have. Her last menstruation was 10/03/2018. She said that she felt hot flashes and felt depressed at times. She had negative test at home. She claimed that she was told to come here to have it checked. Is any bleeding. Denies any other complaint. Said that she went to be test because she is smoking and drinking alcohol. Allergies: Coded Allergies: No Known Allergies (Unverified , 02/10/17) Patient History Past Medical History: see triage record, old chart reviewed Past Surgical History: none Pertinent Family History: none Social History: Denies: smoking Last Menstrual Period: 10/03/18 Now: No - UNK Immunizations: other Reviewed Nursing Documentation: PMH: Agreed; PSxH: Agreed Nursing Documentation-PMH Past Medical History: No Stated History Review of Systems Eye: Denies: eye pain, blurred vision ENT: Denies: ear pain, nose congestion, throat swelling Respiratory: Denies: cough, shortness of breath Cardiovascular: Denies: chest pain, palpitations Gastrointestinal: Denies: abdominal pain, diarrhea, nausea, vomiting Musculoskeletal: Denies: back pain, joint pain Skin: Denies: rash Neurological: Denies: headache, numbness Endocrine: Denies: increased thirst, increased urine Hematologic/Lymphatic: Denies: easy bruising All Other Systems: negative except mentioned in HPI Physical Exam Vital Signs Date Time Temp Pulse Resp B/P (MAP) Pulse Ox O2 Delivery O2 Flow Rate FiO2 11/01/18 20:52 88 19 Room Air 11/01/18 20:52 98.1 116/70 (85) 96 Vitals normal Sp02 EP Interpretation: reviewed, normal General Appearance: well appearing, no apparent distress, alert Head: normocephalic, atraumatic Eyes: bilateral eye PERRL, bilateral eye EOMI ENT: hearing grossly normal, normal pharynx Neck: full range of motion, supple, no meningismus Respiratory: chest non-tender, lungs clear, normal breath sounds Cardiovascular #1: regular rate, rhythm, no murmur Gastrointestinal: normal bowel sounds, non tender, no mass, no organomegaly, no bruit, non-distended Musculoskeletal: back normal, gait/station normal, normal range of motion Psychiatric: mood/affect normal Medical Decision Making ER Course I try to explain to the patient that her urine test is about 99% accurate in predicting . It has not been 30 days since her last menstruation. Her hot flashes may be because she is going to perimenopause explained to her that she can stop drinking smoking for another week and recheck her again. She insists on getting it checked here. We will check a urine test. I see no need to check a blood test. Explained to the patient that the chance of several test being wrong is extremely low. I see no need for blood test here. Patient was not happy with this. Last Vital Signs Date Time Temp Pulse Resp B/P (MAP) Pulse Ox O2 Delivery O2 Flow Rate FiO2 11/01/18 20:52 98.1 88 19 116/70 96 Room Air Status: unchanged Disposition: HOME, SELF-CARE Condition: Stable Additional Instructions: Follow-up with your doctor in 7 days. Return if symptoms worsen. Aneesh Grayson MD Nov 01, 2018 21:22
[2018-11-01 21:34] LABS: APPEARANCE,URINE CLEAR; BILIRUBIN, URINE NEGATIVE (NEGATIVE); GLUCOSE, URINE (UA) NEGATIVE (NEGATIVE); KETONES,URINE NEGATIVE (NEGATIVE); LEUKOCYTE ESTERASE ,URINE NEGATIVE (NEGATIVE); NITRITE,URINE NEGATIVE (NEGATIVE); PH,URINE 6 (4.5-8.0); PROTEIN,URINE NEGATIVE (NEGATIVE); UROBILINOGEN,URINE NORMAL MG/DL (0.0-1.0)
[2018-11-01 21:38] LABS: COLOR,URINE YELLOW
[2018-11-01 21:55] VITALS: BP 116/70
--- NOTE | 2018-11-01 21:55 | NUR ---
ED Nurse Note: pt cleared to be d/c per ERMD, pt discharge and aftercare instruction provided, pt education done via discussion and handout, pt advised to follow up with pcp or return to ed if changes in condition,vss, ambulatory w/steady gait, left w/ all belongings accompanied by .
== END 2018-11-01 21:55 | disposition home or self-care (01) ==
LOC: EMR 21:08
DX: F41.9 Anxiety disorder, unspecified (principal); N95.1 Menopausal and female climacteric states; F32.9 Major depressive disorder, single episode, unspecified
CPT/HCPCS: 81003; 81025; Z7502; 99283

== ENCOUNTER 2019-06-24 02:21 | Emergency (ER) | payer OTHER ==
[~2019-06-24] VITALS: Ht 172.7 cm; Wt 70.3 kg
[2019-06-24] MEDS ORDERED: KLONOPIN0.5 MG ORAL (02:23)
[2019-06-24] MEDS ORDERED: BUPROPION XL150 MG ORAL (02:23)
--- NOTE | 2019-06-24 02:39 | Emergency Room Report ---
History of Present Illness General Chief Complaint: Headache Source: Patient Present Illness HPI This a 38-year-old female with no past medical history. She presents with complaint of headache. Onset yesterday. Onset was gradual. Pain is behind her left eye and radiate to her back and scalp area. She felt pain in tingliness to the left side of her head and face. Nausea but no vomiting. Initially got better with ibuprofen but not anymore. No focal deficit. [place] nauseous but no vomiting. No fever chills but no chest pain. No shortness of breath. Never had this problem before. Pain is 10 out of 10. No family history of subarachnoid hemorrhage or bleed. Allergies: Coded Allergies: No Known Allergies (Unverified , 02/10/17) COVID-19 Screening Contact w/high risk pt: No Recent Travel to affected area: No Experienced COVID-19 symptoms?: No Patient History Past Medical History: see triage record, old chart reviewed Past Surgical History: none Pertinent Family History: none Social History: Reports: smoking Now: No Immunizations: other Reviewed Nursing Documentation: PMH: Agreed; PSxH: Agreed Nursing Documentation-PMH History Of Psychiatric Problem: Yes - ANXIETY, DEPRESSION Review of Systems Eye: Denies: eye pain, blurred vision ENT: Denies: ear pain, nose congestion, throat swelling Respiratory: Denies: cough, shortness of breath Cardiovascular: Denies: chest pain, palpitations Gastrointestinal: Denies: abdominal pain, diarrhea, nausea, vomiting Musculoskeletal: Denies: back pain, joint pain Skin: Denies: rash Neurological: Reports: headache; Denies: numbness Endocrine: Denies: increased thirst, increased urine Hematologic/Lymphatic: Denies: easy bruising All Other Systems: negative except mentioned in HPI Physical Exam Vital Signs Date Time Temp Pulse Resp B/P (MAP) Pulse Ox O2 Delivery O2 Flow Rate FiO2 06/24/19 02:15 97.2 72 16 117/78 (91) 98 Room Air Vitals normal Sp02 EP Interpretation: reviewed, normal General Appearance: well appearing, no apparent distress, alert Head: normocephalic, atraumatic Eyes: bilateral eye PERRL, bilateral eye EOMI ENT: hearing grossly normal, normal pharynx Neck: full range of motion, supple, no meningismus Respiratory: chest non-tender, lungs clear, normal breath sounds Cardiovascular #1: regular rate, rhythm, no murmur Gastrointestinal: normal bowel sounds, non tender, no mass, no organomegaly, no bruit, non-distended Musculoskeletal: back normal, normal range of motion, gait/station normal Psychiatric: anxious Medical Decision Making Diagnostic Impression: Primary Impression: Headache Qualified Codes: R51 - Headache ER Course Patient presents with headache. Differentials include migraine headache, tension headache, cluster headache to name a few. No evidence of intracranial bleed, meningitis or neoplastic process. Pain resolved now. Will discharge home. CT/MRI/US Diagnostic Results CT/MRI/US Diagnostic Results : Imaging Test Ordered: CT head Impression Read by radiologist. Negative. Last Vital Signs Date Time Temp Pulse Resp B/P (MAP) Pulse Ox O2 Delivery O2 Flow Rate FiO2 06/24/19 02:15 97.2 72 16 117/78 (91) 98 Room Air Status: improved Disposition: HOME, SELF-CARE Condition: Stable Scripts Acetamin/Butalbital/Caffeine* (FIORICET*) 1 Ea Tab 1 TAB ORAL Q6H, #15 TAB 0 Refills Prov: Aneesh Grayson MD 06/24/19 Patient Instructions: General Headache Without Cause Additional Instructions: Follow-up with your doctor in 7 days. Return if symptoms worsen. Aneesh Grayson MD June 24, 2019 02:39
[2019-06-24] MEDS ORDERED: Ketorolac 30mg Inj IV ONE (02:45)
[2019-06-24] MEDS ORDERED: Metoclopramide 10mg/2ml Inj IVP ONE (02:45)
[2019-06-24] MEDS ORDERED: DiphenhydrAMINE 50mg/ml Inj IVP ONE (02:45)
[2019-06-24 02:57] LABS: BASOPHILS % (AUTO) 0.7 % (0.0-2.0); EOSINOPHILS % (AUTO) 0.9 % (0.0-3.0); HEMATOCRIT 39.5 % (37.0-47.0); HEMOGLOBIN 13.8 G/DL (12.0-16.0); LYMPHOCYTES % (AUTO) 14.2 % (20.0-45.0); MEAN CORPUSCULAR VOLUME 89 FL (80-99); MONOCYTES % (AUTO) 5.8 % (1.0-10.0); NEUTROPHILS % (AUTO) 78.3 % (45.0-75.0); PLATELET COUNT 351 K/UL (150-450); RED BLOOD COUNT 4.45 M/UL (4.20-5.40); RED CELL DISTRIBUTION WIDTH 11.6 % (11.6-14.8); WHITE BLOOD COUNT 13.7 K/UL (4.8-10.8)
[2019-06-24 03:02] LABS: ANION GAP 10 mmol/L (5-15); BLOOD UREA NITROGEN 15 mg/dL (7-18); CALCIUM 9.1 MG/DL (8.5-10.1); CARBON DIOXIDE 26 MMOL/L (21-32); CHLORIDE 104 MMOL/L (98-107); POTASSIUM 3.8 MMOL/L (3.5-5.1); SODIUM 140 MMOL/L (136-145)
[2019-06-24] MEDS ORDERED: FIORICET1 EA ORAL (03:39)
--- NOTE | 2019-06-24 03:40 | Diagnostic Imaging Report ---
EXAM: CT Head Without Intravenous Contrast CLINICAL HISTORY: PAIN TECHNIQUE: Axial computed tomography images of the head/brain without intravenous contrast. CTDI is 53.4 mGy and DLP is 1366 mGy-cm. One or more of the following dose reduction techniques were used: automated exposure control, adjustment of the mA and/or kV according to patient size, use of iterative reconstruction technique. COMPARISON: No relevant prior studies available. FINDINGS: Brain: Unremarkable. No hemorrhage. No significant white matter disease. No edema. Ventricles: Unremarkable. No ventriculomegaly. Bones/joints: Unremarkable. No acute fracture. Soft tissues: Partially calcified sub-galeal nodules seen within the right frontal and occipitoparietal scalp. Sinuses: Unremarkable as visualized. No acute sinusitis. Mastoid air cells: Unremarkable as visualized. No mastoid effusion. IMPRESSION: No evidence of acute intracranial abnormality.
[2019-06-24 03:50] VITALS: BP 117/78
== END 2019-06-24 03:45 | disposition home or self-care (01) ==
LOC: EDBD 02:21 → EMR 02:54
DX: R51 Headache (principal); F17.200 Nicotine dependence, unspecified, uncomplicated
CPT/HCPCS: 36415; 70450; 80048; 85025; 96374; 96375; J1200; J1885; J2765; Z7502; 99284